=== PATIENT | male | born 1955 | race African-American/Black ===

== ENCOUNTER 2021-06-26 13:13 | Inpatient (IN) ==
[2021-06-26 14:24] LABS: Basophils % 0.2 % (0.0-0.8); Hematocrit 39.6 VOL% (42.0-52.0); Hemoglobin 13.2 GM/DL (14.0-18.0); Immature Granulocytes % 0.6 %; Immature Granulocytes Absolute 0.05 #; Lymphocytes # 0.8 10*3/uL (1.4-4.0); Lymphocytes % 9.2 % (21.2-54.2); Mean Corpuscular HGB Conc 33.3 GM/DL (32-36); Mean Corpuscular Volume 95.7 FL (87-102); Mean Platelet Volume 10.2 FL (9.6-12.0); Monocytes % 15.3 % (1.7-12.7); Neutrophils % 74.7 % (38.7-73.9); Platelet Count 255 T/CUMM (130-400); Red Blood Count 4.14 MC/CUMM (3.8-5.5); Red Cell Distribution Width 11.7 % (9.3-17.3); White Blood Count 8.8 T/CUMM (4-12)
[2021-06-26 14:50] LABS: Albumin 3.3 G/DL (3.4-5.0); Bilirubin,Total 0.6 MG/DL (0.20-1.00); Calcium 9.8 MG/DL (8.5-10.1); Osmolality,Calculated 275.7 MOS/KG (273-304); Potassium 4.2 MMOL/L (3.5-5.1); Total Protein 8.5 G/DL (6.4-8.2)
[2021-06-26] MEDS ORDERED: SODIUM CHLORIDE 0.9% 1,000 ML IV STA (15:22)
[2021-06-26] MEDS ORDERED: GLUCAGON 1 MG VIAL IM PRN (16:23)
[2021-06-26] MEDS ORDERED: diphenhydrAMINE CAP 25 MG CAPSULE PO PRN (16:23)
[2021-06-26] MEDS ORDERED: ZALEPLON 5 MG CAPSULE PO PRN (16:23)
[2021-06-26] MEDS ORDERED: hydrALAZINE 20 MG/1 ML VIAL IV PRN (16:23)
[2021-06-26] MEDS ORDERED: NICOTINE 21 MG/24 HR PATCH TRANSDERM PRN (16:23)
[2021-06-26] MEDS ORDERED: guaiFENesin/DM ER 600-30 MG TABLET PO PRN (16:23)
[2021-06-26] MEDS ORDERED: DEXTROSE 50% 25 GM/50 ML SYRINGE IV PRN (16:23)
[2021-06-26] MEDS: ONDANSETRON 4 MG/2 ML VIAL IV PRN ×2 (16:43→21:15)
[2021-06-26] MEDS: MORPHINE 2 MG/1 ML SYRINGE IV PRN ×2 (16:43→21:13)
[2021-06-26] MEDS: DEXT 5% NACL 0.9% KCL 40 MEQ 40 MEQ/1,000 ML BAG IV SCH (18:50)
[2021-06-26] MEDS: metroNIDAZOLE INJ 500 MG/100 ML PREMIX IV SCH (23:55)
[2021-06-26] MEDS: HEPARIN 5,000 UNIT/1 ML VIAL SUBCUT SCH (23:57)
[2021-06-27 00:16] LABS: Amorphous Crystals,Urine Occasional /HPF (Few); Bacteria,Urine Occasional /HPF (Few); Mucus,Urine Occasional /LPF (Occasional); Squamous Epithelial Cell,Urine Occasional /HPF (0-10); Urine Appearance Clear (Clear); Urine Color Yellow (Yellow); Urine Specific Gravity 1.015 (1.001-1.035)
[2021-06-27 00:17] LABS: Bilirubin,Urine Negative (Negative); Blood, Urine Negative (Negative); Glucose,Urine (UA) Negative (Negative); Ketones,Urine 100 mg/dL (Negative); Nitrite,Urine Negative (Negative); Protein,Urine Negative; Urine Urobilinogen 0.2 EU/DL (0.2-1.0)
[2021-06-27] MEDS: MORPHINE 2 MG/1 ML SYRINGE IV PRN ×4 (03:21→17:43)
[2021-06-27] MEDS: ONDANSETRON 4 MG/2 ML VIAL IV PRN ×2 (03:22→08:37)
[2021-06-27] MEDS: cefTRIAXone 1,000 MG in SODIUM CHLORIDE 0.9% 100 ML IV SCH ×2 (03:23→20:48)
[2021-06-27 05:47] LABS: Basophils % 0.2 % (0.0-0.8); Hematocrit 38.2 VOL% (42.0-52.0); Hemoglobin 12.6 GM/DL (14.0-18.0); Immature Granulocytes % 0.4 %; Immature Granulocytes Absolute 0.04 #; Lymphocytes % 10.5 % (21.2-54.2); Monocytes % 15.1 % (1.7-12.7); Neutrophils % 73.8 % (38.7-73.9); Platelet Count 234 T/CUMM (130-400); Red Blood Count 3.94 MC/CUMM (3.8-5.5); Red Cell Distribution Width 11.5 % (9.3-17.3); White Blood Count 9.1 T/CUMM (4-12)
[2021-06-27 06:02] LABS: Calcium 9.5 MG/DL (8.5-10.1); Potassium 3.8 MMOL/L (3.5-5.1)
[2021-06-27] MEDS: metroNIDAZOLE INJ 500 MG/100 ML PREMIX IV SCH ×3 (06:30→22:00)
[2021-06-27] MEDS: DEXT 5% NACL 0.9% KCL 40 MEQ 40 MEQ/1,000 ML BAG IV SCH ×2 (06:46→17:43)
[2021-06-27] MEDS: PANTOPRAZOLE 40 MG VIAL IV SCH (08:37)
[2021-06-27] MEDS: HEPARIN 5,000 UNIT/1 ML VIAL SUBCUT SCH ×2 (08:38→20:48)
[2021-06-27] MEDS ORDERED: ALBUTEROL/IPRATROPIUM 3 ML NEB RESP TX PRN (13:42)
[2021-06-27] MEDS: carvediloL 12.5 MG TABLET PO SCH (16:12)
[2021-06-27] MEDS: amLODIPine 10 MG TABLET PO SCH (16:18)
[2021-06-27] MEDS: TAMSULOSIN 0.4 MG CAPSULE PO SCH (20:47)
[2021-06-28] MEDS: MORPHINE 2 MG/1 ML SYRINGE IV PRN ×3 (00:30→10:15)
[2021-06-28] MEDS: FLUTICASONE 50 MCG NASAL SPRAY 16 GM BOTTLE BOTH NARES SCH (01:47)
[2021-06-28] MEDS: DEXT 5% NACL 0.9% KCL 40 MEQ 40 MEQ/1,000 ML BAG IV SCH ×4 (04:46→18:39)
[2021-06-28] MEDS: metroNIDAZOLE INJ 500 MG/100 ML PREMIX IV SCH ×3 (05:42→22:33)
[2021-06-28 06:08] LABS: Basophils % 0.3 % (0.0-0.8); Hematocrit 37.8 VOL% (42.0-52.0); Hemoglobin 12.3 GM/DL (14.0-18.0); Immature Granulocytes % 0.4 %; Immature Granulocytes Absolute 0.04 #; Lymphocytes # 1.1 10*3/uL (1.4-4.0); Lymphocytes % 11.2 % (21.2-54.2); Mean Corpuscular HGB Conc 32.5 GM/DL (32-36); Mean Corpuscular Volume 97.7 FL (87-102); Mean Platelet Volume 10.6 FL (9.6-12.0); Monocytes % 16.1 % (1.7-12.7); Platelet Count 239 T/CUMM (130-400); Red Blood Count 3.87 MC/CUMM (3.8-5.5); Red Cell Distribution Width 11.6 % (9.3-17.3); White Blood Count 9.8 T/CUMM (4-12)
[2021-06-28 06:29] LABS: Calcium 9.7 MG/DL (8.5-10.1); Potassium 3.8 MMOL/L (3.5-5.1)
[2021-06-28 06:36] LABS: Eosinophils 1 % (0-10); Hypochromasia Slight; Lymphocytes 11 % (20-55); Microcytosis Slight; Platelet Estimate Adequate; Segmented Neutrophils 75 % (50-85); Total Cells Counted 100
[2021-06-28] MEDS: carvediloL 12.5 MG TABLET PO SCH ×2 (08:52→17:05)
[2021-06-28] MEDS: amLODIPine 10 MG TABLET PO SCH (08:53)
[2021-06-28] MEDS: CETIRIZINE 10 MG TABLET PO SCH (08:53)
[2021-06-28] MEDS: PANTOPRAZOLE 40 MG VIAL IV SCH (08:53)
[2021-06-28] MEDS: HEPARIN 5,000 UNIT/1 ML VIAL SUBCUT SCH ×2 (08:53→20:08)
[2021-06-28] MEDS ORDERED: FLUTICASONE 50 MCG NASAL SPRAY 16 GM BOTTLE BOTH NARES SCH (09:00)
[2021-06-28] MEDS: TAMSULOSIN 0.4 MG CAPSULE PO SCH (20:08)
[2021-06-28] MEDS: cefTRIAXone 1,000 MG in SODIUM CHLORIDE 0.9% 100 ML IV SCH (21:01)
[2021-06-29] MEDS: DEXT 5% NACL 0.9% KCL 40 MEQ 40 MEQ/1,000 ML BAG IV SCH ×2 (03:30→15:09)
[2021-06-29 04:53] LABS: Basophils % 0.3 % (0.0-0.8); Hematocrit 36.9 VOL% (42.0-52.0); Hemoglobin 12.1 GM/DL (14.0-18.0); Immature Granulocytes % 1.1 %; Immature Granulocytes Absolute 0.11 #; Lymphocytes # 1.3 10*3/uL (1.4-4.0); Lymphocytes % 12.5 % (21.2-54.2); Mean Corpuscular HGB Conc 32.8 GM/DL (32-36); Mean Corpuscular Volume 97.6 FL (87-102); Mean Platelet Volume 10.7 FL (9.6-12.0); Monocytes % 13.7 % (1.7-12.7); Neutrophils % 72.4 % (38.7-73.9); Platelet Count 233 T/CUMM (130-400); Red Blood Count 3.78 MC/CUMM (3.8-5.5); Red Cell Distribution Width 11.7 % (9.3-17.3); White Blood Count 10.4 T/CUMM (4-12)
[2021-06-29 05:12] LABS: Calcium 9.3 MG/DL (8.5-10.1); Osmolality,Calculated 272.7 MOS/KG (273-304); Potassium 4.1 MMOL/L (3.5-5.1)
[2021-06-29 05:14] LABS: Albumin 2.8 G/DL (3.4-5.0); Bilirubin,Total 1.1 MG/DL (0.20-1.00); Calcium 9.2 MG/DL (8.5-10.1); Osmolality,Calculated 275.5 MOS/KG (273-304); Potassium 3.8 MMOL/L (3.5-5.1); Total Protein 7.7 G/DL (6.4-8.2)
[2021-06-29] MEDS: metroNIDAZOLE INJ 500 MG/100 ML PREMIX IV SCH ×3 (05:32→21:36)
[2021-06-29] MEDS: amLODIPine 10 MG TABLET PO SCH (08:13)
[2021-06-29] MEDS: CETIRIZINE 10 MG TABLET PO SCH (08:13)
[2021-06-29] MEDS: PANTOPRAZOLE 40 MG VIAL IV SCH (08:13)
[2021-06-29] MEDS: carvediloL 12.5 MG TABLET PO SCH ×2 (08:13→16:27)
[2021-06-29] MEDS: HEPARIN 5,000 UNIT/1 ML VIAL SUBCUT SCH ×2 (08:13→20:39)
[2021-06-29] MEDS: FLUTICASONE 50 MCG NASAL SPRAY 16 GM BOTTLE BOTH NARES SCH (08:14)
[2021-06-29] MEDS: cefTRIAXone 1,000 MG in SODIUM CHLORIDE 0.9% 100 ML IV SCH (20:39)
[2021-06-29] MEDS: TAMSULOSIN 0.4 MG CAPSULE PO SCH (20:39)
[2021-06-30] MEDS: DEXT 5% NACL 0.9% KCL 40 MEQ 40 MEQ/1,000 ML BAG IV SCH ×3 (02:01→20:45)
[2021-06-30 04:52] LABS: Hematocrit 34.2 VOL% (42.0-52.0); Hemoglobin 11.2 GM/DL (14.0-18.0); Immature Granulocytes % 2.8 %; Immature Granulocytes Absolute 0.11 #; Lymphocytes # 1.2 10*3/uL (1.4-4.0); Lymphocytes % 29.3 % (21.2-54.2); Mean Corpuscular HGB Conc 32.7 GM/DL (32-36); Mean Corpuscular Volume 96.6 FL (87-102); Mean Platelet Volume 10.3 FL (9.6-12.0); Monocytes % 19.3 % (1.7-12.7); Neutrophils % 47.6 % (38.7-73.9); Platelet Count 231 T/CUMM (130-400); Red Blood Count 3.54 MC/CUMM (3.8-5.5); Red Cell Distribution Width 11.6 % (9.3-17.3)
[2021-06-30 05:06] LABS: Calcium 8.7 MG/DL (8.5-10.1); Osmolality,Calculated 272.7 MOS/KG (273-304); Potassium 3.8 MMOL/L (3.5-5.1)
[2021-06-30 05:10] LABS: Albumin 2.4 G/DL (3.4-5.0); Bilirubin,Total 1.4 MG/DL (0.20-1.00); Calcium 8.7 MG/DL (8.5-10.1); Osmolality,Calculated 274.5 MOS/KG (273-304); Potassium 3.9 MMOL/L (3.5-5.1); Total Protein 6.9 G/DL (6.4-8.2)
[2021-06-30 05:13] LABS: Band Neutrophils 2 % (0-10); Eosinophils 3 % (0-10); Lymphocytes 30 % (20-55); Metamyelocytes 1 %; Myelocytes 2 %; Segmented Neutrophils 48 % (50-85); Total Cells Counted 100
[2021-06-30] MEDS: metroNIDAZOLE INJ 500 MG/100 ML PREMIX IV SCH ×3 (05:37→22:23)
[2021-06-30] MEDS: MORPHINE 2 MG/1 ML SYRINGE IV PRN (05:42)
[2021-06-30] MEDS: FLUTICASONE 50 MCG NASAL SPRAY 16 GM BOTTLE BOTH NARES SCH (10:00)
[2021-06-30] MEDS: PANTOPRAZOLE 40 MG VIAL IV SCH (10:00)
[2021-06-30] MEDS: carvediloL 12.5 MG TABLET PO SCH ×2 (10:00→18:24)
[2021-06-30] MEDS: amLODIPine 10 MG TABLET PO SCH (10:00)
[2021-06-30] MEDS: HEPARIN 5,000 UNIT/1 ML VIAL SUBCUT SCH ×2 (10:00→20:53)
[2021-06-30] MEDS: CETIRIZINE 10 MG TABLET PO SCH (10:00)
[2021-06-30] MEDS: cefTRIAXone 1,000 MG in SODIUM CHLORIDE 0.9% 100 ML IV SCH (20:47)
[2021-06-30] MEDS: TAMSULOSIN 0.4 MG CAPSULE PO SCH (20:47)
[2021-07-01] MEDS: metroNIDAZOLE INJ 500 MG/100 ML PREMIX IV SCH ×3 (05:33→22:46)
[2021-07-01] MEDS: DEXT 5% NACL 0.9% KCL 40 MEQ 40 MEQ/1,000 ML BAG IV SCH (05:34)
[2021-07-01 06:10] LABS: Basophils % 0.8 % (0.0-0.8); Hematocrit 33.2 VOL% (42.0-52.0); Immature Granulocytes % 2.7 %; Lymphocytes # 1.1 10*3/uL (1.4-4.0); Lymphocytes % 30.9 % (21.2-54.2); Mean Corpuscular HGB Conc 33.1 GM/DL (32-36); Mean Corpuscular Volume 96.2 FL (87-102); Monocytes % 17.1 % (1.7-12.7); Neutrophils % 48.5 % (38.7-73.9); Platelet Count 243 T/CUMM (130-400); Red Blood Count 3.45 MC/CUMM (3.8-5.5); Red Cell Distribution Width 11.7 % (9.3-17.3); White Blood Count 3.7 T/CUMM (4-12)
[2021-07-01 06:34] LABS: Alanine Aminotransferase 21 U/L (16-61); Albumin 2.5 G/DL (3.4-5.0); Alkaline Phosphatase 87 U/L (45-117); Aspartate Amino Transferase 49 U/L (0-37); Bilirubin,Total < 0.39 MG/DL (0.20-1.00); Blood Urea Nitrogen 4 MG/DL (7-18); Carbon Dioxide 26 MMOL/L (21-32); Estimated Glom Filtration Rate 125 ML/MIN; Glucose 106 MG/DL (74-106); Osmolality,Calculated 271.7 MOS/KG (273-304); Potassium 3.9 MMOL/L (3.5-5.1); Sodium 138 MMOL/L (136-145); Total Protein 6.9 G/DL (6.4-8.2)
[2021-07-01 06:36] LABS: Calcium 9.1 MG/DL (8.5-10.1); Eosinophils 1 % (0-10); Lymphocytes 25 % (20-55); Osmolality,Calculated 273.5 MOS/KG (273-304); Platelet Estimate Adequate; Potassium 4.3 MMOL/L (3.5-5.1); Segmented Neutrophils 59 % (50-85); Total Cells Counted 100
[2021-07-01 06:37] LABS: Hypochromasia 1+; Microcytosis 1+
[2021-07-01 09:16] LABS: INR 1.2; PT Patient Result 12.7 SECS (10.5-12.0)
[2021-07-01] MEDS: FLUTICASONE 50 MCG NASAL SPRAY 16 GM BOTTLE BOTH NARES SCH (10:06)
[2021-07-01] MEDS: HEPARIN 5,000 UNIT/1 ML VIAL SUBCUT SCH ×2 (10:06→20:27)
[2021-07-01] MEDS: PANTOPRAZOLE 40 MG VIAL IV SCH (10:07)
[2021-07-01] MEDS: carvediloL 12.5 MG TABLET PO SCH ×2 (10:07→17:27)
[2021-07-01] MEDS: CETIRIZINE 10 MG TABLET PO SCH (10:07)
[2021-07-01] MEDS: amLODIPine 10 MG TABLET PO SCH (10:07)
[2021-07-01] MEDS ORDERED: DIAZEPAM 5 MG TABLET PO ONE (11:42)
[2021-07-01] MEDS ORDERED: fentaNYL 100 MCG/2 ML VIAL IV ONE (11:44)
[2021-07-01] MEDS ORDERED: MIDAZOLAM 2 MG/2 ML VIAL IV ONE (11:44)
[2021-07-01] MEDS ORDERED: SODIUM CHLORIDE 0.45% 1,000 ML IV SCH (12:00)
[2021-07-01] MEDS: TAMSULOSIN 0.4 MG CAPSULE PO SCH (20:24)
[2021-07-01] MEDS: MORPHINE 2 MG/1 ML SYRINGE IV PRN (20:37)
[2021-07-01] MEDS: cefTRIAXone 1,000 MG in SODIUM CHLORIDE 0.9% 100 ML IV SCH (20:38)
[2021-07-02 04:01] LABS: Bilirubin,Urine Negative (Negative); Blood, Urine Negative (Negative); Glucose,Urine (UA) Negative (Negative); Ketones,Urine Negative (Negative); Mucus,Urine Occasional /LPF (Occasional); Nitrite,Urine Negative (Negative); Protein,Urine Negative; RBC,Urine <1 /HPF (0-4); Squamous Epithelial Cell,Urine Occasional /HPF (0-10); Urine Appearance CLEAR (Clear); Urine Color Yellow (Yellow); Urine Specific Gravity 1.009 (1.001-1.035); Urine Urobilinogen < 2.0 EU/DL (<2.0)
[2021-07-02] MEDS: DEXT 5% NACL 0.9% KCL 40 MEQ 40 MEQ/1,000 ML BAG IV SCH (04:22)
[2021-07-02] MEDS: metroNIDAZOLE INJ 500 MG/100 ML PREMIX IV SCH (06:03)
[2021-07-02 08:36] LABS: Basophils % 0.4 % (0.0-0.8); Hematocrit 35.9 VOL% (42.0-52.0); Hemoglobin 11.9 GM/DL (14.0-18.0); Immature Granulocytes % 1.5 %; Immature Granulocytes Absolute 0.07 #; Lymphocytes % 22.1 % (21.2-54.2); Mean Corpuscular HGB Conc 33.1 GM/DL (32-36); Mean Corpuscular Volume 95.7 FL (87-102); Mean Platelet Volume 9.7 FL (9.6-12.0); Monocytes % 16.2 % (1.7-12.7); Neutrophils % 59.8 % (38.7-73.9); Platelet Count 258 T/CUMM (130-400); Red Blood Count 3.75 MC/CUMM (3.8-5.5); Red Cell Distribution Width 11.8 % (9.3-17.3); White Blood Count 4.6 T/CUMM (4-12)
[2021-07-02 08:58] LABS: Band Neutrophils 1 % (0-10); Eosinophils 2 % (0-10); Hypochromasia 1+; Lymphocytes 18 % (20-55); Microcytosis 1+; Segmented Neutrophils 59 % (50-85); Total Cells Counted 100
[2021-07-02 08:59] LABS: Calcium 9.2 MG/DL (8.5-10.1); Osmolality,Calculated 274.5 MOS/KG (273-304)
[2021-07-02] MEDS ORDERED: CEFUROXIME 500 MG TABLET PO SCH (09:00)
[2021-07-02] MEDS: carvediloL 12.5 MG TABLET PO SCH (09:23)
[2021-07-02] MEDS: CETIRIZINE 10 MG TABLET PO SCH (09:23)
[2021-07-02] MEDS: amLODIPine 10 MG TABLET PO SCH (09:24)
[2021-07-02] MEDS: PANTOPRAZOLE 40 MG VIAL IV SCH (09:25)
[2021-07-02] MEDS: HEPARIN 5,000 UNIT/1 ML VIAL SUBCUT SCH (09:25)
[2021-07-02] MEDS: FLUTICASONE 50 MCG NASAL SPRAY 16 GM BOTTLE BOTH NARES SCH (10:40)
[2021-07-02 11:15] VITALS: BP 149/89
== END 2021-07-02 13:58 | disposition home or self-care (01) | DRG 392 ==
LOC: N.ED 13:13 → N.EDINP 16:23 → N.3E 18:00
PROVIDERS: ADMIT Internal Medicine; ATTEND Internal Medicine

== ENCOUNTER 2021-07-07 11:12 | Inpatient (IN) ==
[2021-07-07] MEDS ORDERED: PROMETHAZINE 25 MG/1 ML VIAL IM PRN (14:25)
[2021-07-07] MEDS ORDERED: ERTAPENEM 1,000 MG in SODIUM CHLORIDE 0.9% 100 ML IV SCH (15:00)
[2021-07-07] MEDS ORDERED: PANTOPRAZOLE 40 MG TABLET PO SCH (15:00)
[2021-07-07] MEDS: ONDANSETRON 4 MG/2 ML VIAL IV PRN (15:04)
[2021-07-07] MEDS: HYDROmorphone 2 MG/1 ML VIAL IV PRN (15:04)
[2021-07-07] MEDS: LACTATED RINGERS 1,000 ML IV SCH (15:05)
[2021-07-07] MEDS ORDERED: FLUCONAZOLE IV SCH (16:00)
[2021-07-07] MEDS ORDERED: FLUCONAZOLE 800 MG/400 ML IV ONE (16:30)
[2021-07-07] MEDS: carvediloL 6.25 MG TABLET PO SCH (17:20)
[2021-07-08] MEDS: HYDROmorphone 2 MG/1 ML VIAL IV PRN ×2 (00:03→16:28)
[2021-07-08] MEDS: LACTATED RINGERS 1,000 ML IV SCH ×4 (03:11→23:20)
[2021-07-08 06:04] LABS: Basophils % 0.1 % (0.0-0.8); Hematocrit 38.8 VOL% (42.0-52.0); Hemoglobin 12.6 GM/DL (14.0-18.0); Immature Granulocytes % 0.4 %; Immature Granulocytes Absolute 0.06 #; Lymphocytes # 1.1 10*3/uL (1.4-4.0); Lymphocytes % 8.4 % (21.2-54.2); Mean Corpuscular HGB Conc 32.5 GM/DL (32-36); Mean Platelet Volume 9.7 FL (9.6-12.0); Monocytes % 12.7 % (1.7-12.7); Neutrophils % 78.4 % (38.7-73.9); Platelet Count 318 T/CUMM (130-400); Red Blood Count 3.96 MC/CUMM (3.8-5.5); Red Cell Distribution Width 11.9 % (9.3-17.3); White Blood Count 13.5 T/CUMM (4-12)
[2021-07-08 06:16] LABS: Calcium 9.6 MG/DL (8.5-10.1); Osmolality,Calculated 278.5 MOS/KG (273-304)
[2021-07-08] MEDS: amLODIPine 10 MG TABLET PO SCH (10:44)
[2021-07-08] MEDS: ATORVASTATIN 40 MG TABLET PO SCH (10:44)
[2021-07-08] MEDS: PANTOPRAZOLE 40 MG TABLET PO SCH (10:44)
[2021-07-08] MEDS: carvediloL 6.25 MG TABLET PO SCH ×2 (10:44→17:25)
[2021-07-08] MEDS: FINASTERIDE 5 MG TABLET PO SCH ×2 (10:44→20:42)
[2021-07-08] MEDS: AMPICILLIN/SULBACTAM 1,500 MG in SODIUM CHLORIDE 0.9% 100 ML IV SCH ×3 (10:44→20:41)
[2021-07-08] MEDS: ENOXAPARIN 40 MG/0.4 ML SYRINGE SUBCUT SCH (10:44)
[2021-07-08] MEDS: FLUTICASONE 50 MCG NASAL SPRAY 16 GM BOTTLE BOTH NARES SCH (10:44)
[2021-07-08] MEDS: DICLOFENAC 1% GEL 100 GM TUBE TOP SCH ×2 (10:45→20:41)
[2021-07-08] MEDS: FLUCONAZOLE INJ 400 MG/200 ML PREMIX IV SCH (10:45)
[2021-07-08] MEDS: CETIRIZINE 10 MG TABLET PO SCH (10:45)
[2021-07-08] MEDS ORDERED: FLUCONAZOLE IV SCH (16:00)
[2021-07-08] MEDS ORDERED: PHENOL 1.4% THROAT SPRAY 177 ML BOTTLE PO PRN (17:26)
[2021-07-08] MEDS ORDERED: PHENOL 1.4% THROAT SPRAY 177 ML BOTTLE PO SCH (18:00)
[2021-07-08] MEDS: TAMSULOSIN 0.4 MG CAPSULE PO SCH (20:42)
[2021-07-08] MEDS: ASPIRIN EC 81 MG TABLET PO SCH (20:42)
[2021-07-08] MEDS: MELATONIN 3 MG TABLET PO SCH (20:42)
[2021-07-08] MEDS: ONDANSETRON 4 MG/2 ML VIAL IV PRN (22:08)
[2021-07-09] MEDS: AMPICILLIN/SULBACTAM 1,500 MG in SODIUM CHLORIDE 0.9% 100 ML IV SCH ×4 (01:59→21:32)
[2021-07-09 08:09] LABS: Basophils % 0.4 % (0.0-0.8); Hematocrit 35.8 VOL% (42.0-52.0); Hemoglobin 11.3 GM/DL (14.0-18.0); Immature Granulocytes % 0.6 %; Immature Granulocytes Absolute 0.04 #; Lymphocytes # 1.1 10*3/uL (1.4-4.0); Lymphocytes % 15.8 % (21.2-54.2); Mean Corpuscular HGB Conc 31.6 GM/DL (32-36); Mean Corpuscular Volume 99.2 FL (87-102); Mean Platelet Volume 9.6 FL (9.6-12.0); Monocytes % 11.8 % (1.7-12.7); Neutrophils % 71.4 % (38.7-73.9); Platelet Count 298 T/CUMM (130-400); Red Blood Count 3.61 MC/CUMM (3.8-5.5); Red Cell Distribution Width 11.9 % (9.3-17.3); White Blood Count 6.8 T/CUMM (4-12)
[2021-07-09 08:29] LABS: Calcium 9.4 MG/DL (8.5-10.1); Potassium 3.5 MMOL/L (3.5-5.1)
[2021-07-09] MEDS: ENOXAPARIN 40 MG/0.4 ML SYRINGE SUBCUT SCH (09:29)
[2021-07-09] MEDS: carvediloL 6.25 MG TABLET PO SCH ×2 (09:29→16:32)
[2021-07-09] MEDS: ATORVASTATIN 40 MG TABLET PO SCH (09:29)
[2021-07-09] MEDS: amLODIPine 10 MG TABLET PO SCH (09:33)
[2021-07-09] MEDS: FLUTICASONE 50 MCG NASAL SPRAY 16 GM BOTTLE BOTH NARES SCH (09:33)
[2021-07-09] MEDS: FINASTERIDE 5 MG TABLET PO SCH ×2 (09:34→21:31)
[2021-07-09] MEDS: CETIRIZINE 10 MG TABLET PO SCH (09:34)
[2021-07-09] MEDS: DICLOFENAC 1% GEL 100 GM TUBE TOP SCH ×2 (09:34→21:32)
[2021-07-09] MEDS: PANTOPRAZOLE 40 MG TABLET PO SCH (09:34)
[2021-07-09] MEDS: chlorproMAZINE INJ 25 MG in SODIUM CHLORIDE 0.9% 100 ML IV PRN ×2 (11:17→17:10)
[2021-07-09] MEDS: LORazepam 2 MG/1 ML VIAL IV PRN (11:22)
[2021-07-09] MEDS: FLUCONAZOLE INJ 400 MG/200 ML PREMIX IV SCH (12:59)
[2021-07-09] MEDS: DEXT 5% NACL 0.45% KCL 40 MEQ 40 MEQ/1,000 ML BAG IV SCH ×2 (15:36→16:32)
[2021-07-09] MEDS: LACTATED RINGERS 1,000 ML IV SCH (17:21)
[2021-07-09] MEDS: MELATONIN 3 MG TABLET PO SCH (20:25)
[2021-07-09] MEDS: TAMSULOSIN 0.4 MG CAPSULE PO SCH (21:30)
[2021-07-09] MEDS: ASPIRIN EC 81 MG TABLET PO SCH (21:31)
[2021-07-10] MEDS: DEXT 5% NACL 0.45% KCL 40 MEQ 40 MEQ/1,000 ML BAG IV SCH ×3 (01:11→19:54)
[2021-07-10] MEDS: AMPICILLIN/SULBACTAM 1,500 MG in SODIUM CHLORIDE 0.9% 100 ML IV SCH ×4 (01:59→21:55)
[2021-07-10] MEDS: chlorproMAZINE INJ 25 MG in SODIUM CHLORIDE 0.9% 100 ML IV PRN ×2 (02:06→22:50)
[2021-07-10 05:00] LABS: Basophils % 0.3 % (0.0-0.8); Hematocrit 34.6 VOL% (42.0-52.0); Hemoglobin 11.3 GM/DL (14.0-18.0); Immature Granulocytes % 0.8 %; Immature Granulocytes Absolute 0.05 #; Lymphocytes # 0.9 10*3/uL (1.4-4.0); Lymphocytes % 14.5 % (21.2-54.2); Mean Corpuscular HGB Conc 32.7 GM/DL (32-36); Mean Corpuscular Volume 96.4 FL (87-102); Mean Platelet Volume 9.3 FL (9.6-12.0); Monocytes % 10.8 % (1.7-12.7); Neutrophils % 73.6 % (38.7-73.9); Platelet Count 268 T/CUMM (130-400); Red Blood Count 3.59 MC/CUMM (3.8-5.5); Red Cell Distribution Width 11.7 % (9.3-17.3); White Blood Count 6.2 T/CUMM (4-12)
[2021-07-10 05:31] LABS: Calcium 9.1 MG/DL (8.5-10.1); Osmolality,Calculated 279.3 MOS/KG (273-304); Potassium 3.8 MMOL/L (3.5-5.1)
[2021-07-10] MEDS: CETIRIZINE 10 MG TABLET PO SCH (08:50)
[2021-07-10] MEDS: amLODIPine 10 MG TABLET PO SCH (08:50)
[2021-07-10] MEDS: ATORVASTATIN 40 MG TABLET PO SCH (08:50)
[2021-07-10] MEDS: DICLOFENAC 1% GEL 100 GM TUBE TOP SCH ×2 (08:50→21:38)
[2021-07-10] MEDS: FLUTICASONE 50 MCG NASAL SPRAY 16 GM BOTTLE BOTH NARES SCH (08:50)
[2021-07-10] MEDS: LORazepam 2 MG/1 ML VIAL IV PRN ×2 (11:18→15:32)
[2021-07-10] MEDS: carvediloL 6.25 MG TABLET PO SCH ×2 (13:02→17:43)
[2021-07-10] MEDS: PANTOPRAZOLE 40 MG TABLET PO SCH (14:21)
[2021-07-10] MEDS: FINASTERIDE 5 MG TABLET PO SCH ×2 (14:21→21:38)
[2021-07-10] MEDS: ENOXAPARIN 40 MG/0.4 ML SYRINGE SUBCUT SCH (15:26)
[2021-07-10] MEDS: FLUCONAZOLE INJ 400 MG/200 ML PREMIX IV SCH (15:27)
[2021-07-10] MEDS: MELATONIN 3 MG TABLET PO SCH (21:38)
[2021-07-10] MEDS: ASPIRIN EC 81 MG TABLET PO SCH (21:38)
[2021-07-10] MEDS: TAMSULOSIN 0.4 MG CAPSULE PO SCH (21:38)
[2021-07-11] MEDS: DEXT 5% NACL 0.45% KCL 40 MEQ 40 MEQ/1,000 ML BAG IV SCH ×3 (01:39→21:00)
[2021-07-11] MEDS: AMPICILLIN/SULBACTAM 1,500 MG in SODIUM CHLORIDE 0.9% 100 ML IV SCH ×4 (03:34→20:55)
[2021-07-11] MEDS: LORazepam 2 MG/1 ML VIAL IV PRN ×2 (06:05→17:36)
[2021-07-11] MEDS: DICLOFENAC 1% GEL 100 GM TUBE TOP SCH ×2 (09:00→20:55)
[2021-07-11] MEDS: ENOXAPARIN 40 MG/0.4 ML SYRINGE SUBCUT SCH (09:05)
[2021-07-11] MEDS: HYDROmorphone 2 MG/1 ML VIAL IV PRN (09:05)
[2021-07-11] MEDS: FLUTICASONE 50 MCG NASAL SPRAY 16 GM BOTTLE BOTH NARES SCH (09:06)
[2021-07-11] MEDS: ONDANSETRON 4 MG/2 ML VIAL IV PRN (09:14)
[2021-07-11] MEDS ORDERED: LIDOCAINE 2% 5 ML VIAL ONE (10:00)
[2021-07-11] MEDS ORDERED: ETOMIDATE 40 MG/20 ML VIAL IV ONE (10:00)
[2021-07-11] MEDS ORDERED: propofoL 200 MG/20 ML VIAL IV ONE (10:00)
[2021-07-11] MEDS: amLODIPine 10 MG TABLET PO SCH (10:26)
[2021-07-11] MEDS: PANTOPRAZOLE 40 MG TABLET PO SCH (10:26)
[2021-07-11] MEDS: ATORVASTATIN 40 MG TABLET PO SCH (10:26)
[2021-07-11] MEDS: carvediloL 6.25 MG TABLET PO SCH ×2 (10:26→16:32)
[2021-07-11] MEDS: FINASTERIDE 5 MG TABLET PO SCH ×2 (10:26→20:55)
[2021-07-11] MEDS: CETIRIZINE 10 MG TABLET PO SCH (10:27)
[2021-07-11] MEDS ORDERED: PHENYLEPHRINE 1 MG/10 ML SYRINGE IV ONE (10:59)
[2021-07-11] MEDS: FLUCONAZOLE INJ 400 MG/200 ML PREMIX IV SCH (14:04)
[2021-07-11] MEDS: ASPIRIN EC 81 MG TABLET PO SCH (20:55)
[2021-07-11] MEDS: TAMSULOSIN 0.4 MG CAPSULE PO SCH (20:55)
[2021-07-11] MEDS: MELATONIN 3 MG TABLET PO SCH (20:55)
[2021-07-11] MEDS: chlorproMAZINE INJ 25 MG in SODIUM CHLORIDE 0.9% 100 ML IV PRN (21:56)
[2021-07-12] MEDS: AMPICILLIN/SULBACTAM 1,500 MG in SODIUM CHLORIDE 0.9% 100 ML IV SCH ×4 (03:46→21:03)
[2021-07-12] MEDS: FLUTICASONE 50 MCG NASAL SPRAY 16 GM BOTTLE BOTH NARES SCH (08:39)
[2021-07-12] MEDS: ENOXAPARIN 40 MG/0.4 ML SYRINGE SUBCUT SCH (08:39)
[2021-07-12] MEDS: ATORVASTATIN 40 MG TABLET PO SCH (08:40)
[2021-07-12] MEDS: carvediloL 6.25 MG TABLET PO SCH ×2 (08:40→17:29)
[2021-07-12] MEDS: amLODIPine 10 MG TABLET PO SCH (08:40)
[2021-07-12] MEDS: PANTOPRAZOLE 40 MG TABLET PO SCH (08:40)
[2021-07-12] MEDS: FINASTERIDE 5 MG TABLET PO SCH ×2 (08:40→21:03)
[2021-07-12] MEDS: CETIRIZINE 10 MG TABLET PO SCH (08:40)
[2021-07-12] MEDS: DICLOFENAC 1% GEL 100 GM TUBE TOP SCH ×2 (09:11→21:04)
[2021-07-12] MEDS: FLUCONAZOLE INJ 400 MG/200 ML PREMIX IV SCH (13:07)
[2021-07-12] MEDS: DEXT 5% NACL 0.45% KCL 40 MEQ 40 MEQ/1,000 ML BAG IV SCH ×2 (21:01→21:46)
[2021-07-12] MEDS: ASPIRIN EC 81 MG TABLET PO SCH (21:03)
[2021-07-12] MEDS: MELATONIN 3 MG TABLET PO SCH (21:03)
[2021-07-12] MEDS: TAMSULOSIN 0.4 MG CAPSULE PO SCH (21:03)
[2021-07-13] MEDS: AMPICILLIN/SULBACTAM 1,500 MG in SODIUM CHLORIDE 0.9% 100 ML IV SCH ×4 (01:34→21:17)
[2021-07-13] MEDS: DEXT 5% NACL 0.45% KCL 40 MEQ 40 MEQ/1,000 ML BAG IV SCH ×3 (01:39→23:08)
[2021-07-13] MEDS: ATORVASTATIN 40 MG TABLET PO SCH (08:46)
[2021-07-13] MEDS: FINASTERIDE 5 MG TABLET PO SCH ×2 (08:46→21:16)
[2021-07-13] MEDS: amLODIPine 10 MG TABLET PO SCH (08:46)
[2021-07-13] MEDS: carvediloL 6.25 MG TABLET PO SCH ×2 (08:46→16:54)
[2021-07-13] MEDS: ENOXAPARIN 40 MG/0.4 ML SYRINGE SUBCUT SCH (08:46)
[2021-07-13] MEDS: PANTOPRAZOLE 40 MG TABLET PO SCH (08:46)
[2021-07-13] MEDS: CETIRIZINE 10 MG TABLET PO SCH (08:47)
[2021-07-13] MEDS: FLUTICASONE 50 MCG NASAL SPRAY 16 GM BOTTLE BOTH NARES SCH (09:03)
[2021-07-13] MEDS: DICLOFENAC 1% GEL 100 GM TUBE TOP SCH ×2 (09:04→21:18)
[2021-07-13] MEDS: chlorproMAZINE INJ 25 MG in SODIUM CHLORIDE 0.9% 100 ML IV PRN (13:02)
[2021-07-13] MEDS: FLUCONAZOLE INJ 400 MG/200 ML PREMIX IV SCH (14:57)
[2021-07-13] MEDS: ASPIRIN EC 81 MG TABLET PO SCH (21:16)
[2021-07-13] MEDS: TAMSULOSIN 0.4 MG CAPSULE PO SCH (21:16)
[2021-07-13] MEDS: MELATONIN 3 MG TABLET PO SCH (21:16)
[2021-07-14] MEDS: AMPICILLIN/SULBACTAM 1,500 MG in SODIUM CHLORIDE 0.9% 100 ML IV SCH ×2 (01:31→09:37)
[2021-07-14] MEDS: DEXT 5% NACL 0.45% KCL 40 MEQ 40 MEQ/1,000 ML BAG IV SCH ×2 (04:07→12:35)
[2021-07-14 06:14] LABS: Basophils % 0.8 % (0.0-0.8); Hematocrit 35.8 VOL% (42.0-52.0); Hemoglobin 11.7 GM/DL (14.0-18.0); Immature Granulocytes % 1.1 %; Immature Granulocytes Absolute 0.04 #; Lymphocytes # 1.3 10*3/uL (1.4-4.0); Lymphocytes % 35.5 % (21.2-54.2); Mean Corpuscular HGB Conc 32.7 GM/DL (32-36); Mean Corpuscular Volume 96.5 FL (87-102); Mean Platelet Volume 9.7 FL (9.6-12.0); Monocytes % 14.9 % (1.7-12.7); Neutrophils % 47.7 % (38.7-73.9); Platelet Count 264 T/CUMM (130-400); Red Blood Count 3.71 MC/CUMM (3.8-5.5); Red Cell Distribution Width 11.7 % (9.3-17.3); White Blood Count 3.7 T/CUMM (4-12)
[2021-07-14 06:48] LABS: Calcium 8.9 MG/DL (8.5-10.1); Osmolality,Calculated 268.8 MOS/KG (273-304); Potassium 3.9 MMOL/L (3.5-5.1)
[2021-07-14 07:00] LABS: Eosinophils 1 % (0-10); Hypochromia Slight; Lymphocytes 41 % (20-55); Microcytosis Slight; Platelet Estimate Adequate; Segmented Neutrophils 43 % (50-85); Total Cells Counted 100
[2021-07-14] MEDS: CETIRIZINE 10 MG TABLET PO SCH (09:38)
[2021-07-14] MEDS: ENOXAPARIN 40 MG/0.4 ML SYRINGE SUBCUT SCH (09:38)
[2021-07-14] MEDS: ATORVASTATIN 40 MG TABLET PO SCH (09:38)
[2021-07-14] MEDS: PANTOPRAZOLE 40 MG TABLET PO SCH (09:38)
[2021-07-14] MEDS: FINASTERIDE 5 MG TABLET PO SCH (09:38)
[2021-07-14] MEDS: amLODIPine 10 MG TABLET PO SCH (09:38)
[2021-07-14] MEDS: carvediloL 6.25 MG TABLET PO SCH (09:38)
[2021-07-14] MEDS: DICLOFENAC 1% GEL 100 GM TUBE TOP SCH (09:39)
[2021-07-14] MEDS: FLUTICASONE 50 MCG NASAL SPRAY 16 GM BOTTLE BOTH NARES SCH (09:39)
[2021-07-14 12:24] VITALS: BP 115/76
[2021-07-14] MEDS: FLUCONAZOLE INJ 400 MG/200 ML PREMIX IV SCH (12:33)
== END 2021-07-14 16:00 | disposition home health service (06) | DRG 392 ==
LOC: N.CT 11:12 → N.3E 13:36
PROVIDERS: ADMIT Surgery; ATTEND Surgery

== ENCOUNTER 2021-08-12 06:13 | Inpatient (IN) ==
[2021-08-06 12:30] LABS: Basophils % 0.5 % (0.0-0.8); Hematocrit 35.3 VOL% (42.0-52.0); Hemoglobin 11.2 GM/DL (14.0-18.0); Immature Granulocytes % 0.3 %; Immature Granulocytes Absolute 0.01 #; Lymphocytes # 1.2 10*3/uL (1.4-4.0); Lymphocytes % 30.5 % (21.2-54.2); Mean Corpuscular HGB Conc 31.7 GM/DL (32-36); Mean Corpuscular Volume 98.1 FL (87-102); Mean Platelet Volume 9.9 FL (9.6-12.0); Monocytes % 14.9 % (1.7-12.7); Neutrophils % 53.8 % (38.7-73.9); Platelet Count 224 T/CUMM (130-400); Red Cell Distribution Width 13.2 % (9.3-17.3); White Blood Count 3.8 T/CUMM (4-12)
[2021-08-06 12:50] LABS: Calcium 9.3 MG/DL (8.5-10.1); Osmolality,Calculated 275.5 MOS/KG (273-304); Potassium 4.4 MMOL/L (3.5-5.1)
[~2021-08-12 06:13] MED LIST: INDOCYANINE GREEN 25 MG VIAL IV ONE; LACTATED RINGERS 1,000 ML IV SCH
[2021-08-12] MEDS ORDERED: ERTAPENEM 1,000 MG in SODIUM CHLORIDE 0.9% 100 ML IV ONE (06:30)
[2021-08-12] MEDS ORDERED: ALVIMOPAN 12 MG CAPSULE PO ONE (06:30)
[2021-08-12] MEDS ORDERED: DIAZEPAM 5 MG TABLET ONE (06:57)
[2021-08-12] MEDS ORDERED: PANTOPRAZOLE 40 MG TABLET PO ONE ×2 (06:57→07:00)
[2021-08-12] MEDS ORDERED: DIAZEPAM 5 MG TABLET PO ONE (07:00)
[2021-08-12] MEDS ORDERED: DIAZEPAM 5 MG TABLET PO STA (12:17)
[2021-08-12] MEDS ORDERED: ROPIVACAINE 0.5% 30 ML VIAL ONE (13:32)
[2021-08-12] MEDS ORDERED: MIDAZOLAM 2 MG/2 ML VIAL ONE (13:32)
[2021-08-12] MEDS ORDERED: LIDOCAINE 1% 5 ML VIAL ONE (13:32)
[2021-08-12] MEDS ORDERED: ONDANSETRON 4 MG/2 ML VIAL ONE ×2 (13:32→15:03)
[2021-08-12] MEDS ORDERED: fentaNYL 100 MCG/2 ML VIAL ONE (13:32)
[2021-08-12] MEDS ORDERED: DEXAMETHASONE 4 MG/1 ML VIAL ONE ×2 (13:32→13:50)
[2021-08-12] MEDS ORDERED: DEXMEDETOMIDINE 200 MCG/2 ML VIAL ONE (13:44)
[2021-08-12] MEDS ORDERED: INDOCYANINE GREEN 25 MG VIAL IV ONE (14:10)
[2021-08-12] MEDS ORDERED: ROCURONIUM 50 MG/5 ML VIAL IV ONE ×2 (14:12→15:23)
[2021-08-12] MEDS ORDERED: ETOMIDATE 40 MG/20 ML VIAL IV ONE (14:12)
[2021-08-12] MEDS ORDERED: LIDOCAINE 2% 5 ML VIAL ONE (14:13)
[2021-08-12] MEDS ORDERED: DESFLURANE 1 UNIT/15 MINUTE INH ONE (15:03)
[2021-08-12] MEDS ORDERED: PHENYLEPHRINE 1 MG/10 ML SYRINGE IV ONE (15:46)
[2021-08-12] MEDS ORDERED: GLYCOPYRROLATE 0.4 MG/2 ML VIAL ONE (16:01)
[2021-08-12] MEDS ORDERED: TISSUE ADHESIVE 1 EACH APPLICATOR TOP ONE (16:03)
[2021-08-12] MEDS ORDERED: ONDANSETRON 4 MG/2 ML VIAL IV PRN (17:23)
[2021-08-12] MEDS ORDERED: HYDROmorphone 2 MG/1 ML VIAL IV PRN (17:23)
[2021-08-12] MEDS: KETOROLAC 30 MG/1 ML VIAL IV SCH ×2 (17:48→22:58)
[2021-08-12] MEDS: LACTATED RINGERS 1,000 ML IV SCH (17:49)
[2021-08-12] MEDS: carvediloL 6.25 MG TABLET PO SCH (17:49)
[2021-08-12 18:51] LABS: Basophils % 0.2 % (0.0-0.8); Hematocrit 29.7 VOL% (42.0-52.0); Hemoglobin 9.6 GM/DL (14.0-18.0); Immature Granulocytes % 0.6 %; Immature Granulocytes Absolute 0.04 #; Lymphocytes # 0.6 10*3/uL (1.4-4.0); Lymphocytes % 8.6 % (21.2-54.2); Mean Corpuscular HGB Conc 32.3 GM/DL (32-36); Mean Platelet Volume 10.2 FL (9.6-12.0); Monocytes % 1.4 % (1.7-12.7); Neutrophils % 89.2 % (38.7-73.9); Platelet Count 152 T/CUMM (130-400); Red Blood Count 2.97 MC/CUMM (3.8-5.5); Red Cell Distribution Width 13.6 % (9.3-17.3); White Blood Count 6.4 T/CUMM (4-12)
[2021-08-12 19:09] LABS: Calcium 7.7 MG/DL (8.5-10.1); Osmolality,Calculated 275.5 MOS/KG (273-304); Potassium 3.8 MMOL/L (3.5-5.1)
[2021-08-12] MEDS ORDERED: MELATONIN 3 MG TABLET PO SCH (21:00)
[2021-08-12] MEDS ORDERED: ATORVASTATIN 40 MG TABLET PO SCH (21:00)
[2021-08-12] MEDS ORDERED: ASPIRIN EC 81 MG TABLET PO SCH (21:00)
[2021-08-12] MEDS ORDERED: GABAPENTIN 300 MG CAPSULE PO SCH (21:00)
[2021-08-12] MEDS: ALVIMOPAN 12 MG CAPSULE PO SCH (21:20)
[2021-08-12] MEDS: tiZANidine 4 MG TABLET PO SCH (21:21)
[2021-08-12] MEDS: FINASTERIDE 5 MG TABLET PO SCH (21:21)
[2021-08-12] MEDS: DICLOFENAC 1% GEL 100 GM TUBE TOP SCH (21:29)
[2021-08-13] MEDS: LACTATED RINGERS 1,000 ML IV SCH (03:31)
[2021-08-13] MEDS: KETOROLAC 30 MG/1 ML VIAL IV SCH ×2 (05:26→10:48)
[2021-08-13 05:33] LABS: Hematocrit 33.3 VOL% (42.0-52.0); Immature Granulocytes % 0.6 %; Immature Granulocytes Absolute 0.05 #; Lymphocytes # 0.7 10*3/uL (1.4-4.0); Mean Corpuscular Volume 97.1 FL (87-102); Mean Platelet Volume 10.3 FL (9.6-12.0); Monocytes % 5.5 % (1.7-12.7); Neutrophils % 85.9 % (38.7-73.9); Platelet Count 199 T/CUMM (130-400); Red Blood Count 3.43 MC/CUMM (3.8-5.5); Red Cell Distribution Width 13.6 % (9.3-17.3); White Blood Count 8.4 T/CUMM (4-12)
[2021-08-13 05:50] LABS: Calcium 8.7 MG/DL (8.5-10.1); Osmolality,Calculated 278.7 MOS/KG (273-304); Potassium 4.2 MMOL/L (3.5-5.1)
[2021-08-13] MEDS ORDERED: AMOXICILLIN/CLAV 875 MG TABLET PO SCH (09:00)
[2021-08-13] MEDS ORDERED: amLODIPine 10 MG TABLET PO SCH (09:00)
[2021-08-13] MEDS ORDERED: CETIRIZINE 10 MG TABLET PO SCH (09:00)
[2021-08-13] MEDS ORDERED: CEFUROXIME 500 MG TABLET PO SCH (09:00)
[2021-08-13] MEDS ORDERED: PANTOPRAZOLE 40 MG TABLET PO SCH (09:00)
[2021-08-13] MEDS ORDERED: FLUTICASONE 50 MCG NASAL SPRAY 16 GM BOTTLE BOTH NARES SCH (09:00)
[2021-08-13] MEDS: ENOXAPARIN 40 MG/0.4 ML SYRINGE SUBCUT SCH ×2 (10:48→10:59)
[2021-08-13] MEDS: carvediloL 6.25 MG TABLET PO SCH (10:49)
[2021-08-13] MEDS: tiZANidine 4 MG TABLET PO SCH (10:49)
[2021-08-13] MEDS: FINASTERIDE 5 MG TABLET PO SCH (10:49)
[2021-08-13] MEDS: ALVIMOPAN 12 MG CAPSULE PO SCH (10:50)
[2021-08-13] MEDS: DICLOFENAC 1% GEL 100 GM TUBE TOP SCH (10:51)
[2021-08-13 12:20] VITALS: BP 97/66
== END 2021-08-13 14:00 | disposition home or self-care (01) | DRG 340 ==
LOC: N.OR 06:13 → N.SDSINP 06:15 → N.5E 16:32
PROVIDERS: ADMIT Surgery; ATTEND Surgery